=== PATIENT | female | born 1960 | race Caucasian/White ===

== ENCOUNTER 2018-09-07 10:46 | Emergency (ER) | payer OTHER ==
[~2018-09-07] VITALS: Ht 149.9 cm; Wt 45.8 kg
[2018-09-07 11:08] VITALS: BP 181/111
--- NOTE | 2018-09-07 11:15 | NUR ---
58/F BIB C/O DYSPHAGIA X THIS AM----UNABLE TO SWALLOW SHAKE THIS MORNING HX----THROAT CA (REMISSION 5YRS), HTN RX---HCTZ 50MG QD, NORVASC 5MG QD
[2018-09-07 14:54] VITALS: BP 151/90
--- NOTE | 2018-09-07 14:54 | NUR ---
Patient discharged with v/s stable. Written and verbal after care instructions given and explained. Patient verbalized understanding. Ambulatory with steady gait. All questions addressed prior to discharge. Advised to follow up with PMD.
== END 2018-09-07 14:54 | disposition home or self-care (01) ==
LOC: MED 10:46
DX: R13.10 Dysphagia, unspecified (principal); I10 Essential (primary) hypertension; Z85.818 Personal history of malignant neoplasm of other sites of lip, oral cavity, and pharynx; Z88.0 Allergy status to penicillin
CPT/HCPCS: 70490; 99284